=== PATIENT | female | born 1960 | race American Indian/Alaskan Native ===

== ENCOUNTER 2020-07-28 03:07 | Emergency (ER) | payer SELFPAY ==
[2020-07-28 04:01] LABS: Basophils % (Auto) 0.3 % (0.0-1.8); Eosinophils # (Auto) 0.1 K/mm3 (0.0-0.4); Eosinophils % (Auto) 1.1 % (0.0-4.3); Hematocrit 33.7 % (30.3-42.9); Hemoglobin 10.9 gm/dl (10.1-14.3); Lymphocytes # (Auto) 2.2 K/mm3 (1.2-5.4); Lymphocytes % (Auto) 26.5 % (13.4-35.0); Mean Corpuscular HGB Conc 33 % (30-34); Mean Corpuscular Volume 86 fl (79-97); Monocytes # (Auto) 0.6 K/mm3 (0.0-0.8); Monocytes % (Auto) 6.6 % (0.0-7.3); Platelet Count 334 K/mm3 (140-440); Red Blood Count 3.93 M/mm3 (3.65-5.03)
[2020-07-28 04:02] LABS: Red Cell Distribution Width 22.1 % (13.2-15.2)
--- NOTE | 2020-07-28 04:12 | XRay Report ---
CHEST PA AND LATERAL VIEWS INDICATION: chest pain. COMPARISON: None. FINDINGS: Support devices: None. Heart: Normal. There are post-CABG changes. Lungs/Pleura: No acute pulmonary or pleural findings. IMPRESSION: 1. No acute findings. Signer Name: Rory Bello MD Signed: 07/28/2020 4:08 AM Workstation Name: [id number]
[2020-07-28 04:26] LABS: Alanine Aminotransferase 12 units/L (7-56); BUN/Creatinine Ratio 11; Blood Urea Nitrogen 9 mg/dL (7-17); Calcium 9.1 mg/dL (8.4-10.2); Hemolysis Index 8
[2020-07-28] MEDS ORDERED: fentaNYL 100 MCG/2 ML INJ IV ONE ×3 (08:48→10:16)
[2020-07-28] MEDS ORDERED: ONDANSETRON 4 MG/2 ML INJ IV ONE (08:48)
[2020-07-28] MEDS ORDERED: ASPIRIN 325 MG TAB PO ONE (08:49)
--- NOTE | 2020-07-28 08:54 | Emergency Department Report ---
HPI - General Chief Complaint: Chest Pain Time Seen by Provider: 07/28/20 08:42 - [facility] HPI: Room 5 The patient is a 60-year-old female present with a chief complaint of chest pain. Patient states his symptoms began this morning at 02: 00 with sharp left- sided chest pain has been constant in nature. Patient denies shortness of breath, nausea/vomiting or diaphoresis. Patient admits to an occasional cough for 1 day that has been nonproductive. Patient denies history of fever. Patient currently gives her chest pain a score of 9/10. Patient states she had a 5 vessel CABG December 2019 ED Past Medical Hx - Past Medical History Previous Medical History?: Yes Hx Hypertension: Yes Hx Diabetes: Yes Additional medical history: high cholestrol - Surgical History Past Surgical History?: Yes Hx Open Heart Surgery: Yes (Bypass x5) - Family History Family history: no significant - Social History Smoking Status: Never Smoker Substance Use Type: None (Denies illicit drug use) - Medications Home Medications: Home Medications Medication Instructions Recorded Confirmed Last Taken Type HYDROcodone/APAP 5-325 [[place] 1 each PO Q6HR PRN #10 tablet 07/28/20 Unknown Rx 5/325] Ibuprofen [Motrin 800 MG tab] 800 mg PO Q8HR PRN #20 tablet 07/28/20 Unknown Rx ED Review of Systems ROS: Stated complaint: CHEST PAIN Other details as noted in HPI Constitutional: denies: diaphoresis Eyes: denies: eye pain ENT: denies: throat pain Respiratory: cough. denies: shortness of breath Cardiovascular: chest pain Endocrine: no symptoms reported Gastrointestinal: denies: nausea, vomiting Genitourinary: denies: dysuria Musculoskeletal: denies: back pain Neurological: denies: headache Physical Exam - Physical Exam Vital Signs: Vital Signs 07/28/20 03:17 Temperature 98.6 F Pulse Rate 92 H Respiratory 18 Rate Blood Pressure 140/78 O2 Sat by Pulse 96 Oximetry Physical Exam: GENERAL: The patient is well-developed well-nourished female lying on stretcher not appearing to be in acute distress. [] HEENT: Normocephalic. Atraumatic. Extraocular motions are intact. Patient has moist mucous membranes. NECK: Supple. Trachea midline CHEST/LUNGS: Clear to auscultation. There is no respiratory distress noted. HEART/CARDIOVASCULAR: Regular. There is no tachycardia. There is no gallop rub or murmur. ABDOMEN: Abdomen is soft, nontender. Patient has normal bowel sounds. There is no abdominal distention. SKIN: There is no rash. There is no edema. There is no diaphoresis. NEURO: The patient is awake, alert, and oriented. The patient is cooperative. The patient has no focal neurologic deficits. The patient has normal speech MUSCULOSKELETAL: There is no evidence of acute injury. ED Course Vital Signs 07/28/20 03:17 Temperature 98.6 F Pulse Rate 92 H Respiratory 18 Rate Blood Pressure 140/78 O2 Sat by Pulse 96 Oximetry - Consultations Consultation #1: 07/28/20 13:34 Case discussed with patient's supply chain coordinator Dr. Gomez-states patient has musculoskeletal chest pain since the surgery. Agrees with treatment. States EKG known to have flipped T waves. ED Medical Decision Making - Lab Data Result diagrams: 07/28/20 03:29 07/28/20 03:29 Laboratory Tests 07/28/20 07/28/20 07/28/20 03:29 03:29 06:53 WBC 8.4 RBC 3.93 Hgb 10.9 Hct 33.7 MCV 86 MCH 28 MCHC 33 RDW 22.1 H Plt Count 334 Lymph % (Auto) 26.5 [place] % (Auto) 6.6 Eos % (Auto) 1.1 Baso % (Auto) 0.3 Lymph # (Auto) 2.2 [place] # (Auto) 0.6 Eos # (Auto) 0.1 Baso # (Auto) 0.0 Seg Neutrophils % 65.5 Seg Neutrophils # 5.5 Sodium 141 Potassium 3.7 Chloride 100.2 Carbon Dioxide 28 Anion Gap 17 BUN 9 Creatinine 0.8 Estimated GFR > 60 BUN/Creatinine Ratio 11 Glucose 173 H Calcium 9.1 Total Bilirubin 0.20 AST 15 ALT 12 Alkaline Phosphatase 111 Troponin T < 0.010 < 0.010 Total Protein 7.9 Albumin 4.0 Albumin/Globulin Ratio 1.0 07/28/20 10:00 WBC RBC Hgb Hct MCV MCH MCHC RDW Plt Count Lymph % (Auto) [place] % (Auto) Eos % (Auto) Baso % (Auto) Lymph # (Auto) [place] # (Auto) Eos # (Auto) Baso # (Auto) Seg Neutrophils % Seg Neutrophils # Sodium Potassium Chloride Carbon Dioxide Anion Gap BUN Creatinine Estimated GFR BUN/Creatinine Ratio Glucose Calcium Total Bilirubin AST ALT Alkaline Phosphatase Troponin T < 0.010 Total Protein Albumin Albumin/Globulin Ratio - EKG Data -: EKG Interpreted by Me EKG shows normal: sinus rhythm Rate: normal - EKG Data When compared to previous EKG there are: previous EKG unavailable Interpretation: nonspecific ST-T wave astrid (T wave inversions in leads aVR, aVF, V2, V3, V4, V5), LVH - Radiology Data Radiology results: report reviewed (Chest x-ray, CT chest), image reviewed (Chest x-ray, CT chest) interpreted by me: Chest x-nct-fkbyidekyd wires in place, no focal infiltrates, no pneumothorax. [address] [address] XRay Report Signed Patient: ANGELA GREGORY MR#: [id number] : 1960 Acct:[id number] Age/Sex: 60 / F ADM Date: 07/28/20 Loc: ED Attending Dr: Ordering Physician: MARGOT LEVIN MD Date of Service: 07/28/20 Procedure(s): XR chest routine 2V Accession Number(s): [id number] cc: ED DOCMD Fluoro Time In Minutes: CHEST PA AND LATERAL VIEWS INDICATION: chest pain. COMPARISON: None. FINDINGS: Support devices: None. Heart: Normal. There are post-CABG changes. Lungs/Pleura: No acute pulmonary or pleural findings. IMPRESSION: 1. No acute findings. [place] r Name: Rory Bello MD Signed: 07/28/2020 4:08 AM Workstation Name: [id number] Transcribed By: Dictated By: Rory Bello MD Electronically Authenticated By: Rory Bello MD Signed Date/Time: 07/28/20407 DD/ 7 TD/TT: Print Cancel [address] [address] Cat Scan Report Signed Patient: ANGELA GREGORY MR#: [id number] : 1960 Acct:[id number] Age/Sex: 60 / F ADM Date: 07/28/20 Loc: ED Attending Dr: Ordering Physician: DIAN SINCLAIR MD Date of Service: 07/28/20 Procedure(s): CT angio chest Accession Number(s): [id number] cc: IDAN SINCLAIR MD CTA CHEST WITH IV CONTRAST INDICATION: Chest pain, pleurisy. TECHNIQUE: Axial CT images were obtained through the chest after injection of 100 cc Omnipaque 350 IV contrast. 3 plane MIP reconstructions were produced. All CT scans at this location are performed using CT dose reduction for ALARA by means of automated exposure control. COMPARISON: 2 views of the chest performed today. FINDINGS: Respiratory motion artifact limits portions of this exam. PULMONARY ARTERIES: No pulmonary emboli. AORTA AND ARTERIES: No acute abnormality. The patient is status post CABG with moderate coronary atherosclerosis. The aorta is normal in caliber. HEA RT: No significant abnormality. MEDIASTINUM: No significant abnormality. LUNGS: There is a trace left pleural effusion with associated atelectasis. No pneumothorax. No suspicious consolidation, nodule or mass. ADDITIONAL FINDINGS: None. UPPER ABDOMEN: No acute findings. BONES: No acute abnormality. There are mild degenerative changes along the spine. IMPRESSION: 1. No CT evidence for pulmonary embolism. 2. Trace left pleural effusion with associated atelectasis. 3. Additional findings as above. Signer Name: Oleg Leahy MD Signed: 07/28/2020 10:03 AM Workstation Name: [id number] Transcribed By: [place] Dictated By: Oleg Leahy MD Electronically Authenticated By: Oleg Leahy MD Signed Date/Time: 07/28/20 1003 DD/ 1000 TD/TT: Print Cancel - Differential Diagnosis ACS, PE, costochondritis, pleural effusion Critical care attestation.: If time is entered above; I have spent that time in minutes in the direct care of this critically ill patient, excluding procedure time. ED Disposition Clinical Impression: Chest wall pain Disposition: DC-01 TO HOME OR SELFCARE Is pt being admited?: No Does the pt Need Aspirin: No Condition: Stable Instructions: Nonspecific Chest Pain, Adult Additional Instructions: Return to the emergency department should you develop worsening symptoms, inability to tolerate food or liquids, high fever or any other concerns Prescriptions: Ibuprofen [Motrin 800 MG tab] 800 mg PO Q8HR PRN #20 tablet PRN Reason: Pain, Moderate (4-6) HYDROcodone/APAP 5-325 [[place] 5/325] 1 each PO Q6HR PRN #10 tablet PRN Reason: Pain Referrals: PRIMARY CARE, [Primary Care Provider] - 3-5 Days Time of Disposition: 13:36
--- NOTE | 2020-07-28 10:08 | Cat Scan Report ---
CTA CHEST WITH IV CONTRAST INDICATION: Chest pain, pleurisy. TECHNIQUE: Axial CT images were obtained through the chest after injection of 100 cc Omnipaque 350 IV contrast. 3 plane MIP reconstructions were produced. All CT scans at this location are performed using CT dose reduction for ALARA by means of automated exposure control. COMPARISON: 2 views of the chest performed today. FINDINGS: Respiratory motion artifact limits portions of this exam. PULMONARY ARTERIES: No pulmonary emboli. AORTA AND ARTERIES: No acute abnormality. The patient is status post CABG with moderate coronary athe rosclerosis. The aorta is normal in caliber. HEART: No significant abnormality. MEDIASTINUM: No significant abnormality. LUNGS: There is a trace left pleural effusion with associated atelectasis. No pneumothorax. No suspic ious consolidation, nodule or mass. ADDITIONAL FINDINGS: None. UPPER ABDOMEN: No acute findings. BONES: No acute abnormality. There are mild degenerative changes along the spine. IMPRESSION: 1. No CT evidence for pulmonary embolism. 2. Trace left pleural effusion with associated atelectasis. 3. Additional findings as above. Signer Name: Oleg Leahy MD Signed: 07/28/2020 10:03 AM Workstation Name: [id number]
--- NOTE | 2020-07-28 11:45 | Electrocardiograph Report ---
[facility] Test Date: 2020-07-28 Test Time: 03:24:35 Pat Name: ANGELA GREGORY Department: Room: Gender: F Manager Process Excellence: EITAN : 1960 Requested By: ED DOC Order Number: [id number] Reading MD: Chelsea Quinn Measurements Intervals [place] Rate: 82 P: 64 SD: 141 QRS: 90 QRSD: 101 T: 188 QT: 372 QTc: 436 Interpretive Statements Sinus rhythm Probable left atrial enlargement Probable right ventricular hypertrophy Abnrm T, consider ischemia, anterolateral lds No previous ECG available for comparison Electronically Signed On 07-28-2020 11:45:37 EDT by Chelsea Quinn
[2020-07-28 14:16] VITALS: BP 127/82
== END 2020-07-28 14:20 | disposition home or self-care (01) ==
LOC: ED 03:07
DX: R07.89 Other chest pain (principal); I10 Essential (primary) hypertension; E11.9 Type 2 diabetes mellitus without complications; Z79.899 Other long term (current) drug therapy
CPT/HCPCS: 36415; 71046; 71275; 80053; 84484; 85025; 93005; 96374; 96375; 96376; 99284; J2405; J3010; Q9967

== ENCOUNTER 2020-10-06 09:12 | Outpatient (CLI) | payer BC ==
[2020-10-06 09:39] LABS: Basophils % (Auto) 0.3 % (0.0-1.8); Eosinophils # (Auto) 0.1 K/mm3 (0.0-0.4); Eosinophils % (Auto) 1.2 % (0.0-4.3); Hemoglobin 11.3 gm/dl (10.1-14.3); Lymphocytes # (Auto) 1.9 K/mm3 (1.2-5.4); Lymphocytes % (Auto) 28.9 % (13.4-35.0); Mean Corpuscular HGB Conc 32 % (30-34); Mean Corpuscular Volume 85 fl (79-97); Monocytes # (Auto) 0.5 K/mm3 (0.0-0.8); Monocytes % (Auto) 7.1 % (0.0-7.3); Platelet Count 308 K/mm3 (140-440); Red Blood Count 4.11 M/mm3 (3.65-5.03); Red Cell Distribution Width 18.5 % (13.2-15.2)
[2020-10-06 10:02] LABS: Alanine Aminotransferase 10 units/L (7-56); BUN/Creatinine Ratio 18; Blood Urea Nitrogen 14 mg/dL (7-17); Calcium 9.2 mg/dL (8.4-10.2); Chol/HDL Ratio 3.06 %; HDL Cholesterol 43 mg/dL (40-59); Hemolysis Index 1; LDL Cholesterol,Direct 88 mg/dL (50-130)
[2020-10-09 12:37] LABS: Vitamin D, 25-OH, D2 <4 ng/mL
== END 2020-10-06 09:13 | disposition home or self-care (01) ==
LOC: LAB 09:12
PROVIDERS: ATTEND Internal Medicine
DX: Z00.00 Encounter for general adult medical examination without abnormal findings (principal); Z13.29 Encounter for screening for other suspected endocrine disorder; E11.9 Type 2 diabetes mellitus without complications; E78.5 Hyperlipidemia, unspecified; E55.9 Vitamin D deficiency, unspecified
CPT/HCPCS: 36415; 80053; 80061; 82306; 83036; 84443; 85025

== ENCOUNTER 2021-08-14 11:48 | Inpatient (IN) | payer BC, OTHER ==
[2021-08-14] MEDS ORDERED: SODIUM CHLORIDE 0.9% 500 ML 500 ML IV ONE (12:45)
[2021-08-14] MEDS ORDERED: INSULIN REGULAR, HUMAN 100 UNITS/1 ML IV ONE (12:45)
[2021-08-14 12:59] LABS: Basophils % (Auto) 0.4 % (0.0-1.8); Eosinophils % (Auto) 0.3 % (0.0-4.3); Hematocrit 40.8 % (30.3-42.9); Hemoglobin 12.8 gm/dl (10.1-14.3); Lymphocytes # (Auto) 1.3 K/mm3 (1.2-5.4); Lymphocytes % (Auto) 20.2 % (13.4-35.0); Mean Corpuscular HGB Conc 31 % (30-34); Mean Corpuscular Volume 86 fl (79-97); Monocytes # (Auto) 0.4 K/mm3 (0.0-0.8); Monocytes % (Auto) 6.8 % (0.0-7.3); Platelet Count 239 K/mm3 (140-440); Red Blood Count 4.75 M/mm3 (3.65-5.03); Red Cell Distribution Width 18.1 % (13.2-15.2)
[2021-08-14 13:41] LABS: Bacteria,Urine 1+ /HPF (Negative); Bilirubin,Urine NEG (Negative); Blood,Urine SM (Negative); Color,Urine Yellow (Yellow); Mucus,Urine FEW /HPF; Protein,Urine <15 mg/dL mg/dL (Negative); Urobilinogen,Urine < 2.0 mg/dL (<2.0)
[2021-08-14 13:42] LABS: WBC,Urine > 182.0 /HPF (0.0-6.0)
[2021-08-14] MEDS ORDERED: NITROFURANTOIN MONOHYD/M-CRYST 100 MG CAP PO ONE (14:01)
--- NOTE | 2021-08-14 14:08 | Emergency Department Report ---
ED General Adult HPI - General Chief complaint: Hyperglycemia Stated complaint: HYPERGLYCEMIA Time Seen by Provider: 08/14/21 12:19 Source: patient Mode of arrival: Ambulatory Limitations: No Limitations - History of Present Illness Initial comments: 61-year-old female with a past medical history of CHF, hypertension, elevated cholesterol, and gxt-viplkgb-yraaelwok diabetes presents to the hospital complaining of hyperglycemia. Patient states that she is supposed to be on metformin 1000 mg twice daily and alogliptin 25 mg daily she has been noncomp liant with alogliptin for the past 3 to 4 months and her metformin was reduced to 750 twice daily by her doctor. She is unclear why her metformin was reduced. She only recently realized that she has been noncompliant with alogliptin because there was some error in filling her medication. Yesterday patient had generalized weakness and dizziness. She is asymptomatic today. She typically checks her blood sugar every other day and reports today it was high so she came to the ED for evaluation. She denies dysuria, nausea, vomiting, fever shortness of breath, or abdominal pain Severity scale (0 -10): 0 - Related Data Previous Rx's Medication Instructions Recorded Last Taken Type HYDROcodone/APAP 5-325 [[place] 1 each PO Q6HR PRN #10 tablet 07/28/20 Unknown Rx 5/325] Ibuprofen [Motrin 800 MG tab] 800 mg PO Q8HR PRN #20 tablet 07/28/20 Unknown Rx Allergies Allergy/AdvReac Type Severity Reaction Status Date / Time steroids Allergy Nausea Uncoded 07/28/20 03:19 ED Review of Systems ROS: Stated complaint: HYPERGLYCEMIA Other details as noted in HPI Comment: All other systems reviewed and negative ED Past Medical Hx - Past Medical History Hx Hypertension: Yes Hx Diabetes: Yes Additional medical history: high cholestrol - Surgical History Hx Open Heart Surgery: Yes (Bypass x5) - Social History Smoking Status: Never Smoker Substance Use Type: None - Medications Home Medications: Home Medications Medication Instructions Recorded Confirmed Last Taken Type HYDROcodone/APAP 5-325 [[place] 1 each PO Q6HR PRN #10 tablet 07/28/20 Unknown Rx 5/325] Ibuprofen [Motrin 800 MG tab] 800 mg PO Q8HR PRN #20 tablet 07/28/20 Unknown Rx ED Physical Exam - General Limitations: No Limitations - Other Other exam information: General: No acute distress Head: Atraumatic Eyes: normal appearance ENT: Moist mucous membranes Neck: Normal appearance, no midline tenderness Chest: Clear to auscultation bilaterally CV: Regular rate and rhythm Abdomen: Soft, normal bowel sounds, nontender, nondistended, no rebound or guarding Back: Normal inspection Extremity: Normal inspection, full range of motion Neuro: Alert O x 3, no facial asymmetry, speech clear, no gross motor sensory deficit Psych: Appropriate behavior Skin: No rash ED Course Vital Signs 08/14/21 08/14/21 12:01 13:16 Temperature 98.7 F Pulse Rate 73 Respiratory 18 Rate Blood Pressure 100/72 [Right] O2 Sat by Pulse 99 100 Oximetry - Consultations Consultation #1: 08/14/21 14:28 case d/w Dr Pal nephrology consulted, rec admission due to renal insuf ED Medical Decision Making - Lab Data Result diagrams: 08/14/21 12:44 08/14/21 13:37 Lab Results 08/14/21 08/14/21 08/14/21 Range/Units 12:44 12:44 12:44 WBC 6.4 (4.5-11.0) K/mm3 RBC 4.75 (3.65-5.03) M/mm3 Hgb 12.8 (10.1-14.3) gm/dl Hct 40.8 (30.3-42.9) % MCV 86 (79-97) fl MCH 27 L (28-32) pg MCHC 31 (30-34) % RDW 18.1 H (13.2-15.2) % Plt Count 239 (140-440) K/mm3 Lymph % (Auto) 20.2 (13.4-35.0) % [place] % (Auto) 6.8 (0.0-7.3) % Eos % (Auto) 0.3 (0.0-4.3) % Baso % (Auto) 0.4 (0.0-1.8) % Lymph # (Auto) 1.3 (1.2-5.4) K/mm3 [place] # (Auto) 0.4 (0.0-0.8) K/mm3 Eos # (Auto) 0.0 (0.0-0.4) K/mm3 Baso # (Auto) 0.0 (0.0-0.1) K/mm3 Seg Neutrophils % 72.3 H (40.0-70.0) % Seg Neutrophils # 4.6 (1.8-7.7) K/mm3 VBG pH 7.382 (7.320-7.420) Sodium (137-145) mmol/L Potassium (3.6-5.0) mmol/L Chloride (98-107) mmol/L Carbon Dioxide (22-30) mmol/L Anion Gap mmol/L BUN (7-17) mg/dL Creatinine (0.6-1.2) mg/dL Estimated GFR ml/min BUN/Creatinine Ratio % Glucose (65-100) mg/dL Ketones Quantitative Negative (Negative) Calcium (8.4-10.2) mg/dL Total Bilirubin (0.1-1.2) mg/dL AST (5-40) units/L ALT (7-56) units/L Alkaline Phosphatase (35-129) units/L Troponin T (0.00-0.029) ng/mL Total Protein (6.3-8.2) g/dL Albumin (3.9-5) g/dL Albumin/Globulin Ratio % Urine Color (Yellow) Urine Turbidity (Clear) Urine pH (5.0-7.0) Ur Specific [place] (1.003-1.030) Urine Protein (Negative) mg/dL Urine Glucose (UA) (Negative) mg/dL Urine Ketones (Negative) mg/dL Urine Blood (Negative) Urine Nitrite (Negative) Urine Bilirubin (Negative) Urine Urobilinogen (<2.0) mg/dL Ur Leukocyte Esterase (Negative) Urine WBC (Auto) (0.0-6.0) /HPF Urine RBC (Auto) (0.0-6.0) /HPF U Epithel Cells (Auto) (0-13.0) /HPF Urine Bacteria (Auto) (Negative) /HPF Urine Mucus /HPF Urine Yeast (Budding) /HPF 08/14/21 08/14/21 Range/Units 13:12 13:37 WBC (4.5-11.0) K/mm3 RBC (3.65-5.03) M/mm3 Hgb (10.1-14.3) gm/dl Hct (30.3-42.9) % MCV (79-97) fl MCH (28-32) pg MCHC (30-34) % RDW (13.2-15.2) % Plt Count (140-440) K/mm3 Lymph % (Auto) (13.4-35.0) % [place] % (Auto) (0.0-7.3) % Eos % (Auto) (0.0-4.3) % Baso % (Auto) (0.0-1.8) % Lymph # (Auto) (1.2-5.4) K/mm3 [place] # (Auto) (0.0-0.8) K/mm3 Eos # (Auto) (0.0-0.4) K/mm3 Baso # (Auto) (0.0-0.1) K/mm3 Seg Neutrophils % (40.0-70.0) % Seg Neutrophils # (1.8-7.7) K/mm3 VBG pH (7.320-7.420) Sodium 129 L (137-145) mmol/L Potassium 4.1 (3.6-5.0) mmol/L Chloride 87.4 L (98-107) mmol/L Carbon Dioxide 26 (22-30) mmol/L Anion Gap 20 mmol/L BUN 22 H (7-17) mg/dL Creatinine 1.5 H (0.6-1.2) mg/dL Estimated GFR 43 ml/min BUN/Creatinine Ratio 15 % Glucose 706 H* (65-100) mg/dL Ketones Quantitative (Negative) Calcium 8.9 (8.4-10.2) mg/dL Total Bilirubin 0.40 (0.1-1.2) mg/dL AST 11 (5-40) units/L ALT 10 (7-56) units/L Alkaline Phosphatase 158 H (35-129) units/L Troponin T < 0.010 (0.00-0.029) ng/mL Total Protein 8.2 (6.3-8.2) g/dL Albumin 4.1 (3.9-5) g/dL Albumin/Globulin Ratio 1.0 % Urine Color Yellow (Yellow) Urine Turbidity Slightly-cloudy (Clear) Urine pH 6.0 (5.0-7.0) Ur Specific [place] 1.012 (1.003-1.030) Urine Protein <15 mg/dl (Negative) mg/dL Urine Glucose (UA) >=500 (Negative) mg/dL Urine Ketones Neg (Negative) mg/dL Urine Blood Sm (Negative) Urine Nitrite Neg (Negative) Urine Bilirubin Neg (Negative) Urine Urobilinogen < 2.0 (<2.0) mg/dL Ur Leukocyte Esterase Lg (Negative) Urine WBC (Auto) > 182.0 H (0.0-6.0) /HPF Urine RBC (Auto) 25.0 (0.0-6.0) /HPF U Epithel Cells (Auto) 1.0 (0-13.0) /HPF Urine Bacteria (Auto) 1+ (Negative) /HPF Urine Mucus Few /HPF Urine Yeast (Budding) 1+ /HPF - EKG Data -: EKG Interpreted by Me EKG shows normal: sinus rhythm, ST-T waves (ant lat t wave inv) Rate: normal - EKG Data When compared to previous EKG there are: previous EKG unavailable - Medical Decision Making 61-year-old female with hyperglycemia secondary to medication noncompliance presents to the hospital with high blood sugar without signs of DKA. Patient was treated with IV fluids and insulin with reduction in blood glucose. UA reveals infection and labs reveal acute renal insufficiency new compared to previous labs on record. Case discussed with nephrology. Admission recommended specifically since we cannot aggressively hydrate patient in the ED given her history of CHF and unknown EF. IV Rocephin provided for UTI. Diffuse T wave in versions noted without signs of ST elevation. Troponin negative the patient denies chest pain previous EKG available for comparison hospitalist to admit Critical Care Time: No Critical care attestation.: If time is entered above; I have spent that time in minutes in the direct care of this critically ill patient, excluding procedure time. ED Disposition Clinical Impression: Hyperglycemia due to diabetes mellitus, UTI (urinary tract infection), Noncompliance with medication regimen, Acute renal insufficiency Disposition: ADMITTED INPATIENT Is pt being admited?: Yes Condition: Stable Instructions: Diabetes Mellitus Type 2 in Adults (ED) Time of Disposition: 14:30 (Dr Vega)
[2021-08-14 14:12] LABS: Alanine Aminotransferase 10 units/L (7-56); Albumin 4.1 g/dL (3.9-5); BUN/Creatinine Ratio 15; Blood Urea Nitrogen 22 mg/dL (7-17); Calcium 8.9 mg/dL (8.4-10.2); Hemolysis Index 10
[2021-08-14] MEDS ORDERED: SODIUM CHLORIDE 0.9% 1000 ML 1,000 ML IV ONE (14:18)
[2021-08-14] MEDS ORDERED: cefTRIAXone/NS 1 GM/50 ML 1 GM/50 ML BAG IV ONE (14:29)
[2021-08-14] MEDS ORDERED: LACTATED RINGERS 1,000 ML IV SCH (15:00)
[2021-08-14] MEDS ORDERED: MORPHINE 2 MG/1 ML INJ IV PRN (15:59)
[2021-08-14] MEDS ORDERED: HYDROmorphone 1 MG/1 ML INJ IV PRN (15:59)
[2021-08-14] MEDS ORDERED: METOCLOPRAMIDE 10 MG/2 ML INJ IV PRN (15:59)
[2021-08-14] MEDS ORDERED: ONDANSETRON 4 MG/2 ML INJ IV PRN (15:59)
[2021-08-14] MEDS ORDERED: ACETAMINOPHEN 325 MG TAB PO PRN (15:59)
--- NOTE | 2021-08-14 15:59 | History and Physical Report ---
History of Present Illness Date of examination: 08/14/21 Date of admission: August 14, 2021 Chief complaint: High blood glucose levels History of present illness: 61-year-old -[place] female with history of [id number]-rruvinmhw diabetes, hypertension, CHF and hyperlipidemia comes to ER because of high blood glucose levels. Patient states that she is on metformin and alogliptin. Apparently her medications were reduced. Patient had generalized weakness and d izziness yesterday. Patient is asymptomatic today. Patient checks her blood sugar every day and today it was very high because the patient came to the emergency room. No nausea or vomiting. Came because of the high blood glucose levels. In the ER blood glucose levels are in 500s to 600s. No anion gap. - Past Medical History --Hypertension: Yes --Diabetes: Yes --Additional medical history: high cholestrol - Surgical History --Open Heart Surgery: Yes (Bypass x5) - Social History --Smoking Status: Never Smoker --Substance Use Type: None =Family history Htn - Medications Home Medications: Home Medications Medication Instructions Recorded Confirmed Last Taken Type HYDROcodone/APAP 5-325 [[place] 1 each PO Q6HR PRN #10 tablet 07/28/20 Unknown Rx 5/325] Ibuprofen [Motrin 800 MG tab] 800 mg PO Q8HR PRN #20 tablet 07/28/20 Unknown Rx Review of Systems ROS: Constitutional no weight loss or weight gain no fever or chills HEENT no sore throat no post nasal drip no diplopia Neck no neck stiffness no lymph gland enlargement Chest and lungs no shortness of breath cough or wheezing CVS no chest pain no diaphoresis no palpitations GI no nausea no vomiting no diarrhea Genitourinary system no dysuria no flank pain Musculoskeletal system no muscle pains no joint pains SHEAR TENDER no syncope no seizures Skin no rash no itching Psychiatric no depression no homicidal or suicidal tendencies Hematologic no lymphedema or bruising Endocrine no polydipsia no polyuria no cold intolerance no heat intolerance Medications and Allergies Allergies Allergy/AdvReac Type Severity Reaction Status Date / Time steroids Allergy Nausea Uncoded 07/28/20 03:19 Home Medications Medication Instructions Recorded Confirmed Last Taken Type HYDROcodone/APAP 5-325 [[place] 1 each PO Q6HR PRN #10 tablet 07/28/20 Unknown Rx 5/325] Ibuprofen [Motrin 800 MG tab] 800 mg PO Q8HR PRN #20 tablet 07/28/20 Unknown Rx Alogliptin Benzoate [Alogliptin] 25 mg PO 08/14/21 08/14/21 History Aspirin [Aspirin BABY CHEW TAB] 81 mg PO QDAY 08/14/21 08/14/21 08/14/21 History AtorvaSTATin [Lipitor] 20 mg PO QHS 08/14/21 08/14/21 08/14/21 History Fluticasone [Flonase] 08/14/21 08/14/21 History Furosemide [Lasix] 20 mg PO QDAY 08/14/21 08/14/21 08/14/21 History Metformin HCl [metFORMIN] 1,000 mg PO 08/14/21 08/14/21 History Metoprolol [Lopressor] 25 mg PO 08/14/21 08/14/21 History Valsartan [Diovan] 80 mg PO 08/14/21 08/14/21 History amLODIPine [Norvasc] 10 mg PO DAILY 08/14/21 08/14/21 08/14/21 History hydroCHLOROthiazide 12.5 mg PO 08/14/21 08/14/21 History [Hydrochlorothiazide] Active Meds: Active Medications Lactated Ringer's (Lactated Ringers) 1,000 mls @ 125 mls/hr IV DIRECT ОЛЕГ Exam - Constitutional Vitals: Temp Pulse Resp BP Pulse Ox 98.7 F 73 18 100/72 100 08/14/21 12:01 08/14/21 12:01 08/14/21 12:01 08/14/21 12:01 08/14/21 13:16 General appearance: Present: no acute distress, well-nourished - EENT Eyes: Present: PERRL ENT: hearing intact, clear oral mucosa, other (Dry mucous membranes) - Neck Neck: Present: supple, normal ROM - Respiratory Respiratory effort: normal Respiratory: bilateral: CTA - Cardiovascular Heart rate: 78 Rhythm: regular Heart Sounds: Present: S1 & S2. Absent: rub, click - Extremities Extremities: pulses symmetrical, No edema Peripheral Pulses: within normal limits - Abdominal General gastrointestinal: Present: soft, non-tender, non-distended, normal bowel sounds Female genitourinary: Present: normal - Integumentary Integumentary: Present: clear, warm, dry - Musculoskeletal Musculoskeletal: gait normal, strength equal bilaterally - Psychiatric Psychiatric: appropriate mood/affect, intact judgment & insight - Neurologic Neurologic: CNII-XII intact, moves all extremities HEART Score - HEART Score Troponin: Troponin T < 0.010 ng/mL (0.00-0.029) 08/14/21 13:37 Results - Labs CBC & Chem 7: 08/15/21 05:27 08/15/21 05:27 Labs: Laboratory Last Values WBC 6.4 K/mm3 (4.5-11.0) 08/14/21 12:44 RBC 4.75 M/mm3 (3.65-5.03) 08/14/21 12:44 Hgb 12.8 gm/dl (10.1-14.3) 08/14/21 12:44 Hct 40.8 % (30.3-42.9) 08/14/21 12:44 MCV 86 fl (79-97) 08/14/21 12:44 MCH 27 pg (28-32) L 08/14/21 12:44 MCHC 31 % (30-34) 08/14/21 12:44 RDW 18.1 % (13.2-15.2) H 08/14/21 12:44 Plt Count 239 K/mm3 (140-440) 08/14/21 12:44 Lymph % (Auto) 20.2 % (13.4-35.0) 08/14/21 12:44 [place] % (Auto) 6.8 % (0.0-7.3) 08/14/21 12:44 Eos % (Auto) 0.3 % (0.0-4.3) 08/14/21 12:44 Baso % (Auto) 0.4 % (0.0-1.8) 08/14/21 12:44 Lymph # (Auto) 1.3 K/mm3 (1.2-5.4) 08/14/21 12:44 [place] # (Auto) 0.4 K/mm3 (0.0-0.8) 08/14/21 12:44 Eos # (Auto) 0.0 K/mm3 (0.0-0.4) 08/14/21 12:44 Baso # (Auto) 0.0 K/mm3 (0.0-0.1) 08/14/21 12:44 Seg Neutrophils % 72.3 % (40.0-70.0) H 08/14/21 12:44 Seg Neutrophils # 4.6 K/mm3 (1.8-7.7) 08/14/21 12:44 VBG pH 7.382 (7.320-7.420) 08/14/21 12:44 Sodium 129 mmol/L (137-145) L 08/14/21 13:37 Potassium 4.1 mmol/L (3.6-5.0) 08/14/21 13:37 Chloride 87.4 mmol/L (98-107) L 08/14/21 13:37 Carbon Dioxide 26 mmol/L (22-30) 08/14/21 13:37 Anion Gap 20 mmol/L 08/14/21 13:37 BUN 22 mg/dL (7-17) H 08/14/21 13:37 Creatinine 1.5 mg/dL (0.6-1.2) H 08/14/21 13:37 Estimated GFR 43 ml/min 08/14/21 13:37 BUN/Creatinine Ratio 15 % 08/14/21 13:37 Glucose 706 mg/dL (65-100) H* 08/14/21 13:37 POC Glucose > 600 mg/dL (70-105) H 08/14/21 14:25 Ketones Quantitative Negative (Negative) 08/14/21 12:44 Calcium 8.9 mg/dL (8.4-10.2) 08/14/21 13:37 Total Bilirubin 0.40 mg/dL (0.1-1.2) 08/14/21 13:37 AST 11 units/L (5-40) 08/14/21 13:37 ALT 10 units/L (7-56) 08/14/21 13:37 Alkaline Phosphatase 158 units/L (35-129) H 08/14/21 13:37 Troponin T < 0.010 ng/mL (0.00-0.029) 08/14/21 13:37 Total Protein 8.2 g/dL (6.3-8.2) 08/14/21 13:37 Albumin 4.1 g/dL (3.9-5) 08/14/21 13:37 Albumin/Globulin Ratio 1.0 % 08/14/21 13:37 Urine Color Yellow (Yellow) 08/14/21 13:12 Urine Turbidity Slightly-cloudy (Clear) 08/14/21 13:12 Urine pH 6.0 (5.0-7.0) 08/14/21 13:12 Ur Specific [place] 1.012 (1.003-1.030) 08/14/21 13:12 Urine Protein <15 mg/dl mg/dL (Negative) 08/14/21 13:12 Urine Glucose (UA) >=500 mg/dL (Negative) 08/14/21 13:12 Urine Ketones Neg mg/dL (Negative) 08/14/21 13:12 Urine Blood Sm (Negative) 08/14/21 13:12 Urine Nitrite Neg (Negative) 08/14/21 13:12 Urine Bilirubin Neg (Negative) 08/14/21 13:12 Urine Urobilinogen < 2.0 mg/dL (<2.0) 08/14/21 13:12 Ur Leukocyte Esterase Lg (Negative) 08/14/21 13:12 Urine WBC (Auto) > 182.0 /HPF (0.0-6.0) H 08/14/21 13:12 Urine RBC (Auto) 25.0 /HPF (0.0-6.0) 08/14/21 13:12 U Epithel Cells (Auto) 1.0 /HPF (0-13.0) 08/14/21 13:12 Urine Bacteria (Auto) 1+ /HPF (Negative) 08/14/21 13:12 Urine Mucus Few /HPF 08/14/21 13:12 Urine Yeast (Budding) 1+ /HPF 08/14/21 13:12 Short CBC 08/14/21 08/15/21 Range/Units 12:44 05:27 WBC 6.4 7.3 (4.5-11.0) K/mm3 Hgb 12.8 11.0 (10.1-14.3) gm/dl Hct 40.8 32.9 D (30.3-42.9) % Plt Count 239 211 (140-440) K/mm3 BMP 08/14/21 08/15/21 13:37 05:27 Sodium 129 L 138 D Potassium 4.1 3.7 Chloride 87.4 L 101.4 Carbon Dioxide 26 26 BUN 22 H 13 Creatinine 1.5 H 1.0 Glucose 706 H* 189 H Calcium 8.9 8.3 L Cardiac Enzymes 08/14/21 Range/Units 13:37 Troponin T < 0.010 (0.00-0.029) ng/mL Liver Function 08/14/21 Range/Units 13:37 Total Bilirubin 0.40 (0.1-1.2) mg/dL AST 11 (5-40) units/L ALT 10 (7-56) units/L Alkaline Phosphatase 158 H (35-129) units/L Albumin 4.1 (3.9-5) g/dL Urine 08/14/21 08/14/21 Range/Units 13:12 16:06 Urine Color Yellow Yellow (Yellow) Urine pH 6.0 6.0 (5.0-7.0) Ur Specific Saline 1.012 1.012 (1.003-1.030) Urine Protein <15 mg/dl <15 mg/dl (Negative) mg/dL Urine Glucose (UA) >=500 >=500 (Negative) mg/dL Assessment and Plan Advance Directives: Yes (Full code) VTE prophylaxis?: Chemical Plan of care discussed with patient/family: Yes - Patient Problems (1) Hyperosmolar non-ketotic state in patient with type 2 diabetes mellitus Current Visit: Yes Status: Acute Plan to address problem: Patient being admitted to medical floor because patient is not in metabolic acidosis IV fluids Frequent Accu-Cheks every 4 hours and high dose insulin coverage Added Lantus nightly Patient needs to be on insulin from now on Continue metformin (2) FARZAD (acute kidney injury) Current Visit: Yes Status: Acute Plan to address problem: IV fluids for now Vasomotor nephropathy (3) UTI (urinary tract infection) Current Visit: Yes Status: Acute Qualifiers: Urinary tract infection type: acute cystitis Plan to address problem: Patient initiated on IV Rocephin UTI may have been the precipitating factor (4) Hypertension Current Visit: Yes Status: Chronic Qualifiers: Hypertension type: primary hypertension Qualified Code(s): I10 - Essential (primary) hypertension Plan to address problem: Continue antihypertensives (5) Coronary artery disease Current Visit: Yes Status: Chronic Qualifiers: Coronary Disease-Associated Artery/Lesion type: [place] artery [place] vs. transplanted heart: [place] heart Plan to address problem: Patient states she had bypass surgery Aspirin on regular basis (6) Hyperlipidemia Current Visit: Yes Status: Chronic Qualifiers: Hyperlipidemia type: mixed hyperlipidemia Qualified Code(s): E78.2 - Mixed hyperlipidemia Plan to address problem: Continue statins (7) DVT prophylaxis Current Visit: Yes Status: Acute Plan to address problem: On heparin and GI prophylaxis (8) Advance care planning Current Visit: Yes Status: Acute Plan to address problem: Disease education conducted, care plan discussed, diagnosis discussed, prognosis discussed. Patient is full code. Patient acknowledges understanding and agreement with care plan. +30 minutes.
[2021-08-14] MEDS ORDERED: SODIUM CHLORIDE 0.9% 1000 ML 1,000 ML IV SCH (16:00)
--- NOTE | 2021-08-14 16:39 | Consultation ---
History of Present Illness - Reason for Consult Consult date: 08/14/21 acute renal failure - History of Present Illness The patient is 61 year old female is being admitted for worsening weakness and wound to have severe hyperglycemia. She was also found to have abnormal Cr and renal consult was requested Medications and Allergies Allergies Allergy/AdvReac Type Severity Reaction Status Date / Time steroids Allergy Nausea Uncoded 07/28/20 03:19 Home Medications Medication Instructions Recorded Confirmed Last Taken Type HYDROcodone/APAP 5-325 [[place] 1 each PO Q6HR PRN #10 tablet 07/28/20 Unknown Rx 5/325] Ibuprofen [Motrin 800 MG tab] 800 mg PO Q8HR PRN #20 tablet 07/28/20 Unknown Rx Active Meds: Active Medications Acetaminophen (Acetaminophen 325 Mg Tab) 650 mg PO Q4H PRN PRN Reason: Pain MILD(1-3)/Fever >100.5/STALLINGS Enoxaparin Sodium (Enoxaparin 40 Mg/0.4 Ml Inj) 40 mg SUB-Q QDAY ОЛЕГ Hydromorphone HCl (Hydromorphone 1 Mg/1 Ml Inj) 0.5 mg IV Q3H PRN PRN Reason: Pain , Severe (7-10) Lactated Ringer's (Lactated Ringers) 1,000 mls @ 125 mls/hr IV DIRECT ОЛЕГ Sodium Chloride (Nacl 0.9% 1000 Ml) 1,000 mls @ 150 mls/hr IV DIRECT ОЛЕГ Sodium Chloride (Nacl 0.9% 1000 Ml) 1,000 mls @ 125 mls/hr IV DIRECT ОЛЕГ Ceftriaxone Sodium (Rocephin/Ns 2 Gm/100 Ml) 2 gm in 100 mls @ 200 mls/hr IV Q24H ОЛЕГ; Protocol Insulin Glargine (Insulin Glargine 100 Units/Ml) 25 units SUB-Q QHS ОЛЕГ Insulin Human Lispro (Insulin Lispro 100 Unit/Ml) 0 unit SUB-Q Q4H ОЛЕГ; Protocol Metoclopramide HCl (Metoclopramide 10 Mg/2 Ml Inj) 10 mg IV Q6H PRN PRN Reason: Nausea And Vomiting Morphine Sulfate (Morphine 2 Mg/1 Ml Inj) 2 mg IV Q4H PRN PRN Reason: Pain, Moderate (4-6) Ondansetron HCl (Ondansetron 4 Mg/2 Ml Inj) 4 mg IV Q3H PRN PRN Reason: Nausea And Vomiting Sodium Chloride (Sodium Chloride 0.9% 10 Ml Flush Syringe) 10 ml IV BID ОЛЕГ Sodium Chloride (Sodium Chloride 0.9% 10 Ml Flush Syringe) 10 ml IV PRN PRN PRN Reason: LINE FLUSH Review of Systems All systems: negative (weakness) Exam - Vital Signs Vital signs: Vital Signs Temp Pulse Resp BP Pulse Ox 98.7 F 73 18 100/72 99 08/14/21 12:01 08/14/21 12:01 08/14/21 12:01 08/14/21 12:08/14/21 12:01 - General Appearance General appearance: well-developed, well-nourished, appears stated age EENT: ATNC, PERRL, mucous membranes moist Respiratory: Clear to Ascultation Heart: regular, S1S2 Integumentary: warm and dry Neurologic: no focal deficit, no asterixis, alert and oriented x3 Results - Lab Results 08/14/21 12:44 08/14/21 13:37 Most recent lab results Calcium 8.9 mg/dL (8.4-10.2) 08/14/21 13:37 Assessment and Plan hyperglycema acute renal failure weakness start LR will check bladder scan will check urine lytes renally dose meds strict I&O daily weights
[2021-08-14] MEDS: INSULIN LISPRO 100 UNIT/ML SUB-Q SCH ×2 (16:47→22:07)
[2021-08-14] MEDS ORDERED: cefTRIAXone/NS 2 GM/100 ML 2 GM/100 ML BAG IV SCH (17:00)
[2021-08-14] MEDS: ENOXAPARIN 40 MG/0.4 ML INJ SUB-Q SCH (17:42)
[2021-08-14 19:00] LABS: Creatinine,Urine 16.5 mg/dL (0.1-20.0)
[2021-08-14 19:02] LABS: Bilirubin,Urine NEG (Negative); Blood,Urine MOD (Negative); Color,Urine Yellow (Yellow); Mucus,Urine FEW /HPF; Protein,Urine <15 mg/dL mg/dL (Negative); Urobilinogen,Urine < 2.0 mg/dL (<2.0)
[2021-08-14] MEDS: SODIUM CHLORIDE 0.9% 1000 ML 1,000 ML IV SCH (23:30)
[2021-08-15] MEDS: INSULIN LISPRO 100 UNIT/ML SUB-Q SCH ×6 (00:08→22:40)
[2021-08-15] MEDS: INSULIN GLARGINE 100 UNITS/ML SUB-Q SCH ×2 (01:00→22:39)
[2021-08-15 06:00] LABS: Basophils % (Auto) 0.3 % (0.0-1.8); Eosinophils # (Auto) 0.1 K/mm3 (0.0-0.4); Eosinophils % (Auto) 1.2 % (0.0-4.3); Hematocrit 32.9 % (30.3-42.9); Lymphocytes % (Auto) 40.9 % (13.4-35.0); Mean Corpuscular HGB Conc 33 % (30-34); Mean Corpuscular Volume 83 fl (79-97); Monocytes # (Auto) 0.6 K/mm3 (0.0-0.8); Monocytes % (Auto) 8.8 % (0.0-7.3); Platelet Count 211 K/mm3 (140-440); Red Blood Count 3.96 M/mm3 (3.65-5.03); Red Cell Distribution Width 17.4 % (13.2-15.2)
[2021-08-15] MEDS: SODIUM CHLORIDE 0.9% 1000 ML 1,000 ML IV SCH ×3 (06:08→17:35)
[2021-08-15 06:17] LABS: BUN/Creatinine Ratio 13; Blood Urea Nitrogen 13 mg/dL (7-17); Calcium 8.3 mg/dL (8.4-10.2); Hemolysis Index 0
--- NOTE | 2021-08-15 09:33 | Progress Note ---
Assessment and Plan Assessment and plan: -- Hyperosmolar non-ketotic state in patient with type 2 diabetes mellitus Continue Lantus, Accu-Cheks sliding scale coverage ADA diet Add NovoLog before every meal 8 units, A1c 15.8 Diabetic education, diabetic diet education prior to discharge Home health nurse for disease monitoring at discharge --FARZAD (acute kidney injury) Vasomotor nephropathy present t on admission Now resolved, continue gentle hydration --UTI (urinary tract infection) Empiric antibiotics with IV Rocephin Follow cultures, plenty of oral fluids --Hypertension; moderate control Continue current antihypertensives Closely monitor and adjust the medications as needed -- History of coronary artery disease Patient states she had bypass surgery Continue current cardiac medications --Hyperlipidemia Continue statins, low-cholesterol diet --DVT prophylaxis Subcu heparin --Advance care planning Disease education conducted, care plan discussed, diagnosis discussed, prognosis discussed. Patient is full code. Patient acknowledges understanding and agreement with care plan. +30 minutes. To closely monitor the patient and adjust management as needed Plan of care reviewed with the patient and her nurse Possible discharge in 1 to 2 days if stable History Interval history: I have seen and examined the patient at the bedside Patient's chart and medications reviewed Patient was admitted with hyperosmolar nonketotic state with severe hyperglycemia Blood sugars moderately controlled Patient denies any nausea vomiting or abdominal pain Vital signs Hospitalist Physical - Constitutional Vitals: Temp Pulse Resp BP Pulse Ox 97.9 F 67 16 99/57 97 08/15/21 07:34 08/15/21 07:34 08/15/21 07:34 08/15/21 07:34 08/15/21 07:34 General appearance: Present: no acute distress, well-nourished - EENT Eyes: Present: PERRL, EOM intact - Neck Neck: Present: supple, normal ROM - Respiratory Respiratory effort: normal Respiratory: bilateral: diminished, negative: rales, rhonchi, wheezing - Cardiovascular Rhythm: regular Heart Sounds: Present: S1 & S2 - Extremities Extremities: no ischemia, No edema - Abdominal General gastrointestinal: soft, non-tender, non-distended, normal bowel sounds - Integumentary Integumentary: Present: clear, warm - Psychiatric Psychiatric: appropriate mood/affect, cooperative - Neurologic Neurologic: moves all extremities HEART Score - HEART Score Troponin: Troponin T < 0.010 ng/mL (0.00-0.029) 08/14/21 13:37 Results - Labs CBC & Chem 7: 08/15/21 05:27 08/15/21 05:27 Labs: Laboratory Last Values WBC 7.3 K/mm3 (4.5-11.0) 08/15/21 05:27 RBC 3.96 M/mm3 (3.65-5.03) 08/15/21 05:27 Hgb 11.0 gm/dl (10.1-14.3) 08/15/21 05:27 Hct 32.9 % (30.3-42.9) D 08/15/21 05:27 MCV 83 fl (79-97) 08/15/21 05:27 MCH 28 pg (28-32) 08/15/21 05:27 MCHC 33 % (30-34) 08/15/21 05:27 RDW 17.4 % (13.2-15.2) H 08/15/21 05:27 Plt Count 211 K/mm3 (140-440) 08/15/21 05:27 Lymph % (Auto) 40.9 % (13.4-35.0) H 08/15/21 05:27 [place] % (Auto) 8.8 % (0.0-7.3) H 08/15/21 05:27 Eos % (Auto) 1.2 % (0.0-4.3) 08/15/21 05:27 Baso % (Auto) 0.3 % (0.0-1.8) 08/15/21 05:27 Lymph # (Auto) 3.0 K/mm3 (1.2-5.4) 08/15/21 05:27 [place] # (Auto) 0.6 K/mm3 (0.0-0.8) 08/15/21 05:27 Eos # (Auto) 0.1 K/mm3 (0.0-0.4) 08/15/21 05:27 Baso # (Auto) 0.0 K/mm3 (0.0-0.1) 08/15/21 05:27 Seg Neutrophils % 48.8 % (40.0-70.0) 08/15/21 05:27 Seg Neutrophils # 3.6 K/mm3 (1.8-7.7) 08/15/21 05:27 VBG pH 7.382 (7.320-7.420) 08/14/21 12:44 Sodium 138 mmol/L (137-145) D 08/15/21 05:27 Potassium 3.7 mmol/L (3.6-5.0) 08/15/21 05:27 Chloride 101.4 mmol/L (98-107) 08/15/21 05:27 Carbon Dioxide 26 mmol/L (22-30) 08/15/21 05:27 Anion Gap 14 mmol/L 08/15/21 05:27 BUN 13 mg/dL (7-17) 08/15/21 05:27 Creatinine 1.0 mg/dL (0.6-1.2) 08/15/21 05:27 Estimated GFR > 60 ml/min 08/15/21 05:27 BUN/Creatinine Ratio 13 % 08/15/21 05:27 Glucose 189 mg/dL (65-100) H 08/15/21 05:27 POC Glucose 193 mg/dL (70-105) H 08/15/21 05:28 Hemoglobin A1c 15.8 % (4-6) H 08/15/21 05:27 Ketones Quantitative Negative (Negative) 08/14/21 12:44 Calcium 8.3 mg/dL (8.4-10.2) L 08/15/21 05:27 Phosphorus 2.50 mg/dL (2.5-4.5) 08/15/21 05:27 Total Bilirubin 0.40 mg/dL (0.1-1.2) 08/14/21 13:37 AST 11 units/L (5-40) 08/14/21 13:37 ALT 10 units/L (7-56) 08/14/21 13:37 Alkaline Phosphatase 158 units/L (35-129) H 08/14/21 13:37 Troponin T < 0.010 ng/mL (0.00-0.029) 08/14/21 13:37 Total Protein 8.2 g/dL (6.3-8.2) 08/14/21 13:37 Albumin 4.1 g/dL (3.9-5) 08/14/21 13:37 Albumin/Globulin Ratio 1.0 % 08/14/21 13:37 Urine Color Yellow (Yellow) 08/14/21 16:06 Urine Turbidity Clear (Clear) 08/14/21 16:06 Urine pH 6.0 (5.0-7.0) 08/14/21 16:06 Ur Specific [place] 1.012 (1.003-1.030) 08/14/21 16:06 Urine Protein <15 mg/dl mg/dL (Negative) 08/14/21 16:06 Urine Glucose (UA) >=500 mg/dL (Negative) 08/14/21 16:06 Urine Ketones Neg mg/dL (Negative) 08/14/21 16:06 Urine Blood Mod (Negative) 08/14/21 16:06 Urine Nitrite Neg (Negative) 08/14/21 16:06 Urine Bilirubin Neg (Negative) 08/14/21 16:06 Urine Urobilinogen < 2.0 mg/dL (<2.0) 08/14/21 16:06 Ur Leukocyte Esterase Lg (Negative) 08/14/21 16:06 Urine WBC (Auto) 4.0 /HPF (0.0-6.0) 08/14/21 16:06 Urine RBC (Auto) 10.0 /HPF (0.0-6.0) 08/14/21 16:06 U Epithel Cells (Auto) 1.0 /HPF (0-13.0) 08/14/21 13:12 Urine Bacteria (Auto) 1+ /HPF (Negative) 08/14/21 13:12 Urine Mucus Few /HPF 08/14/21 16:06 Urine Yeast (Budding) Few /HPF 08/14/21 16:06 Urine Creatinine 16.5 mg/dL (0.1-20.0) 08/14/21 18:37 Urine Sodium 70 mmol/L 08/14/21 18:37 [place]/IV: Voiding Method Toilet Active Medications - Current Medications Current Medications: Generic Name Dose Route Start Last Admin Trade Name Freq PRN Reason Stop Dose Admin Acetaminophen 650 mg 08/14/21 15:59 Acetaminophen 325 Mg Tab PO Q4H PRN Pain MILD(1-3)/Fever >100.5/STALLINGS Aspirin 81 mg 08/15/21 10:00 Aspirin Ec 81 Mg Tab PO QDAY [facility] Atorvastatin Calcium 20 mg 08/15/21 22:00 Atorvastatin 20 Mg Tab PO QHS [facility] Enoxaparin Sodium 40 mg 08/14/21 17:00 08/14/21 17:42 Enoxaparin 40 Mg/0.4 Ml Inj SUB-Q 40 mg QDAY ОЛЕГ Administration Hydromorphone HCl 0.5 mg 08/14/21 15:59 Hydromorphone 1 Mg/1 Ml Inj IV Q3H PRN Pain , Severe (7-10) Lactated Ringer's 1,000 mls @ 125 mls/hr 08/14/21 15:00 Lactated Ringers IV DIRECT ОЛЕГ Sodium Chloride 1,000 mls @ 150 mls/hr 08/14/21 16:00 08/15/21 06:08 Nacl 0.9% 1000 Ml IV 150 mls/hr DIRECT ОЛЕГ Administration Sodium Chloride 1,000 mls @ 125 mls/hr 08/14/21 16:00 Nacl 0.9% 1000 Ml IV DIRECT ОЛЕГ Ceftriaxone Sodium 1 gm in 50 mls @ 100 mls/hr 08/15/21 10:00 Rocephin/Ns 1 Gm/50 Ml IV 08/17/21 10:29 Q24H ОЛЕГ Protocol Insulin Glargine 25 units 08/14/21 22:00 08/15/21 01:00 Insulin Glargine 100 Units/Ml SUB-Q 25 units QHS ОЛЕГ Administration Insulin Human Lispro 0 unit 08/14/21 17:00 08/15/21 06:09 Insulin Lispro 100 Unit/Ml SUB-Q 3 unit Q4H ОЛЕГ Administration Protocol Metoclopramide HCl 10 mg 08/14/21 15:59 Metoclopramide 10 Mg/2 Ml Inj IV Q6H PRN Nausea And Vomiting Morphine Sulfate 2 mg 08/14/21 15:59 Morphine 2 Mg/1 Ml Inj IV Q4H PRN Pain, Moderate (4-6) Ondansetron HCl 4 mg 08/14/21 15:59 Ondansetron 4 Mg/2 Ml Inj IV Q3H PRN Nausea And Vomiting Sodium Chloride 10 ml 08/14/21 22:00 08/14/21 22:09 Sodium Chloride 0.9% 10 Ml Flush Syringe IV 10 ml BID ОЛЕГ Administration Sodium Chloride 10 ml 08/14/21 15:59 Sodium Chloride 0.9% 10 Ml Flush Syringe IV PRN PRN LINE FLUSH
--- NOTE | 2021-08-15 10:24 | Electrocardiograph Report ---
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
[2021-08-15] MEDS: ENOXAPARIN 40 MG/0.4 ML INJ SUB-Q SCH (10:41)
[2021-08-15] MEDS: ASPIRIN EC 81 MG TAB PO SCH (10:41)
[2021-08-15] MEDS: cefTRIAXone/NS 1 GM/50 ML 1 GM/50 ML BAG IV SCH (10:42)
[2021-08-16] MEDS: SODIUM CHLORIDE 0.9% 1000 ML 1,000 ML IV SCH (00:37)
[2021-08-16] MEDS: INSULIN LISPRO 100 UNIT/ML SUB-Q SCH (05:27)
[2021-08-16] MEDS ORDERED: INSULIN LISPRO 100 UNIT/ML SUB-Q SCH (07:30)
[2021-08-16 08:57] VITALS: BP 131/86
[2021-08-16] MEDS: cefTRIAXone/NS 1 GM/50 ML 1 GM/50 ML BAG IV SCH (10:30)
[2021-08-16] MEDS: ENOXAPARIN 40 MG/0.4 ML INJ SUB-Q SCH (10:31)
[2021-08-16] MEDS: ASPIRIN EC 81 MG TAB PO SCH (10:31)
[2021-08-16 11:31] LABS: BUN/Creatinine Ratio 8; Blood Urea Nitrogen 6 mg/dL (7-17); Calcium 9.1 mg/dL (8.4-10.2); Hemolysis Index 6
--- NOTE | 2021-08-16 13:07 | Discharge Summary ---
Providers - Providers Date of Admission: 08/14/21 15:59 Date of discharge: 08/16/21 Attending physician: PENNY KAUR Primary care physician: BEAMING MACHINE OPERATOR Hospitalization Condition: Stable Hospital course: -- Hyperosmolar non-ketotic state in patient with type 2 diabetes mellitus Continue Lantus, Accu-Cheks sliding scale coverage ADA diet Add NovoLog before every meal 8 units, A1c 15.8 Diabetic education, diabetic diet education prior to discharge Home health nurse for disease monitoring at discharge --FARZAD (acute kidney injury) Vasomotor nephropathy present t on admission Now resolved, continue gentle hydration --UTI (urinary tract infection) Empiric antibiotics with IV Rocephin Follow cultures, plenty of oral fluids --Hypertension; moderate control Continue current antihypertensives Closely monitor and adjust the medications as needed -- History of coronary artery disease Patient states she had bypass surgery Continue current cardiac medications --Hyperlipidemia Continue statins, low-cholesterol diet --Obesity; BMI 32.8 --DVT prophylaxis Subcu heparin --Advance care planning Disease education conducted, care plan discussed, diagnosis discussed, prognosis discussed. Patient is full code. Patient acknowledges understanding and agreement with care plan. +30 minutes. To closely monitor the patient and adjust management as needed Plan of care reviewed with the patient and her nurse Possible discharge in 1 to 2 days if stable Disposition: 01 HOME / SELF CARE / HOMELESS Final Discharge Diagnosis (Prints w/discharge instructions): Hyperosmolar nonketotic state. hyperglycemia. Hypertension. History of coronary artery disease. Dyslipidemia. Acute kidney injury resolved. Urinary tract infection. Obesity BMI 32.8 Time spent for discharge: 35 min Core Measure Documentation - Palliative Care Palliative Care/ Comfort Measures: Not Applicable - Core Measures Any of the following diagnoses?: none Exam - Constitutional Vitals: Temp Pulse Resp BP Pulse Ox 97.9 F 78 16 131/86 100 08/16/21 08:55 08/16/21 08:55 08/16/21 08:55 08/16/21 08:55 08/16/21 08:55 General appearance: Present: no acute distress, well-nourished - EENT Eyes: Present: PERRL, EOM intact - Neck Neck: Present: supple, normal ROM - Respiratory Respiratory effort: normal Respiratory: bilateral: diminished, negative: rales, rhonchi, wheezing - Cardiovascular Rhythm: regular Heart Sounds: Present: S1 & S2 - Extremities Extremities: no ischemia, No edema - Abdominal General gastrointestinal: Present: soft, non-tender, non-distended - Integumentary Integumentary: Present: clear, warm - Musculoskeletal Musculoskeletal: strength equal bilaterally - Psychiatric Psychiatric: appropriate mood/affect - Neurologic Neurologic: moves all extremities Plan Activity: advance as tolerated Diet: diabetic Additional Instructions: If you have worsening symptoms contact MD or go to the nearest emergency room as needed. Advised to follow-up with primary care physician in 1 week. You may see private associate professor of art for better control of your diabetes melitis Follow up with: PRIMARY CARE, [Primary Care Provider] - 3-5 Days Prescriptions: cefUROXime [Ceftin] 2 tab PO Q12H #20
== END 2021-08-16 15:05 | disposition home or self-care (01) | DRG 637 ==
LOC: ED 11:48 → 4A 15:59
PROVIDERS: ADMIT Internal Medicine; ATTEND Internal Medicine
DX: E11.00 Type 2 diabetes mellitus with hyperosmolarity without nonketotic hyperglycemic-hyperosmolar coma (NKHHC) (principal); N17.0 Acute kidney failure with tubular necrosis; N39.0 Urinary tract infection, site not specified; I25.10 Atherosclerotic heart disease of native coronary artery without angina pectoris; I50.9 Heart failure, unspecified; I11.0 Hypertensive heart disease with heart failure; E78.2 Mixed hyperlipidemia; E78.00 Pure hypercholesterolemia, unspecified; E11.65 Type 2 diabetes mellitus with hyperglycemia; Z91.14 Patient's other noncompliance with medication regimen; Z88.8 Allergy status to other drugs, medicaments and biological substances; E66.9 Obesity, unspecified; Z68.32 Body mass index [BMI] 32.0-32.9, adult
CPT/HCPCS: 36415; 80048; 80053; 81001; 82010; 82570; 82805; 82962; 83036; 84100; 84300; 84484; 85025; 93005; 96365; 96375; 99285; G0378; Q9967; J0696; J1650; J1815; J7030; J7040; J7120